=== PATIENT | female | born 1965 | race Two or more races ===

== ENCOUNTER 2016-12-08 06:21 | Emergency (ER) | payer MEDICAID ==
[~2016-12-08] VITALS: Ht 162.6 cm; Wt 61.2 kg
[~2016-12-08 06:21] MED LIST: ALBU2TAB4 PO; LOVA20TA4 PO; OMEP20CA5 OR
[2016-12-08 06:57] VITALS: BP 147/98
[2016-12-08] MEDS ORDERED: cefTRIAXone SOD 1,000 MG VL IM ONE (08:00)
== END 2016-12-08 08:21 | disposition home or self-care (01) ==
LOC: ER 06:22
CPT/HCPCS: 96372 ×2; 99283; J0696 ×2

== ENCOUNTER 2017-09-05 06:56 | Emergency (ER) | payer MEDICAID ==
[~2017-09-05] VITALS: Ht 162.6 cm; Wt 63.5 kg
[~2017-09-05 06:56] MED LIST changes: -OMEP20CA5 OR; +OMEP20CA74 OR
[2017-09-05 07:23] VITALS: BP 162/84
[2017-09-05] MEDS ORDERED: cefTRIAXone SOD 1,000 MG VL IM ONE (08:30)
== END 2017-09-05 09:40 | disposition home or self-care (01) ==
LOC: ER 06:56
DX: J02.9 Acute pharyngitis, unspecified (principal); J45.909 Unspecified asthma, uncomplicated; K21.9 Gastro-esophageal reflux disease without esophagitis; E78.00 Pure hypercholesterolemia, unspecified; I10 Essential (primary) hypertension
CPT/HCPCS: 96372; 99283; J0696; 93005

== ENCOUNTER → 2018-02-01 | Outpatient (CLI) | payer MEDICAID | END | disposition home or self-care (01) | LOC: Rad HDHVI 09:03 | PROVIDERS: ATTEND Internal Medicine | DX: I70.0 Atherosclerosis of aorta (principal); I10 Essential (primary) hypertension; E78.5 Hyperlipidemia, unspecified; K21.9 Gastro-esophageal reflux disease without esophagitis; J45.909 Unspecified asthma, uncomplicated | CPT/HCPCS: 93306 ==

== ENCOUNTER 2018-08-12 08:08 | Emergency (ER) | payer MEDICAID ==
[~2018-08-12] VITALS: Ht 160 cm; Wt 63.5 kg
[2018-08-12 08:15] VITALS: BP 120/73
== END 2018-08-12 08:53 | disposition home or self-care (01) ==
LOC: ER 08:08
DX: J02.9 Acute pharyngitis, unspecified (principal); J45.909 Unspecified asthma, uncomplicated; K21.9 Gastro-esophageal reflux disease without esophagitis; E78.5 Hyperlipidemia, unspecified; I10 Essential (primary) hypertension; Z90.710 Acquired absence of both cervix and uterus; Z88.8 Allergy status to other drugs, medicaments and biological substances

== ENCOUNTER → 2018-10-03 | Outpatient (CLI) | payer MEDICAID ==
[~2018-10-03] MED LIST changes: +IOHEXOL 350 MG/ML 100ML IJ ONE
[2018-10-03 08:15] VITALS: BP 168/99
--- NOTE | 2018-10-03 08:15 | NUR ---
[facility]F PT TO [facility] FOR IV INSERT FOR CTA ABD, RENALS. DX BACK PAIN AND CHRONIC HTN.
--- NOTE | 2018-10-03 08:20 | NUR ---
CHF IV insertion IV access obtained, via clean sterile technique by inserting 20 gauge catheter at after attempt(s). IV secured properly. No trauma to site. Patient tolerated procedure well.
[2018-10-03 09:15] VITALS: BP 169/98
--- NOTE | 2018-10-03 09:15 | NUR ---
CHF IV removal IV DC'd with sterile technique, catheter fully intact. Pressure dressing applied to site. INCREASE WATER INTAKE TODAY TO AID IN CONTRAST CLEARANCE. Patient tolerated procedure well. Discharged with aftercare instructions per MD. NOTE:
== END | disposition home or self-care (01) ==
LOC: Rad HDHVI 08:08
PROVIDERS: ATTEND Internal Medicine Cardiovascular Disease
DX: I70.1 Atherosclerosis of renal artery (principal); K57.30 Diverticulosis of large intestine without perforation or abscess without bleeding; R94.4 Abnormal results of kidney function studies; I10 Essential (primary) hypertension; M54.9 Dorsalgia, unspecified
CPT/HCPCS: 36415; 74175; 82565; G0463; Q9967

== ENCOUNTER → 2018-11-30 | Outpatient (CLI) | payer MEDICAID ==
[~2018-11-30] MED LIST changes: +ALBUAER3 IN; +ASPI81TA27 PO; +BENA40TA7 PO; +CHOL20007 PO; +CLON0.2D6 PO; +DONE10TA40 PO; +FLU220IH INH; +HYDR12.56 PO; +IBUP800T24 PO; -IOHEXOL 350 MG/ML 100ML IJ ONE; +LORA-622 PO; +NIFE60TA59 PO; +POTA1TAB61 PO; +SIMV-13 PO; +THYR30TA PO
[2018-11-30 12:25] VITALS: BP 154/81
[2018-11-30 12:50] VITALS: BP 139/79
--- NOTE | 2018-11-30 12:50 | NUR ---
Pre-Op Discharge Summary: See e-MAR for any medications given for this visit. Pre-op orders received and carried out per MD of EKG, LABS and chest xrays. Patient given a copy of EKG with instructions to go to [facility] out patient for further follow up care.
[2018-11-30 15:59] LABS: Basophils # (auto) 0 uL; Basophils % (auto) 0.5 % (0.0-2.0); Eosinophils # (auto) 0.3 uL; Eosinophils % (auto) 3.5 % (0.0-7.0); Hematocrit 40.3 % (36.0-46.0); Hemoglobin 13.4 g/dL (12.2-16.2); Lymphocytes # (auto) 1.8 uL; Lymphocytes % (auto) 24.6 % (10.0-50.0); Mean Corpuscular Hemoglobin 29.3 pg (28.0-32.0); Mean Corpuscular Hgb Conc. 33.2 g/dL (32.0-36.0); Mean Corpuscular Volume 88.2 fL (80.0-100.0); Monocytes # (auto) 0.6 uL; Monocytes % (auto) 8.1 % (0.0-12.0); Neutrophils # (auto) 4.6 uL; Neutrophils % (auto) 63.3 % (37.0-80.0); Nucleated Red Blood Cells % 0.2 %; Platelet Count (auto) 374 10^3/uL (140-450); Red Blood Cells 4.57 10^6/uL (4.0-5.20); Red Cell Distribution Width 13.3 % (11.8-14.3); White Blood Cell 7.3 10^3/uL (4.4-10.8)
[2018-11-30 16:03] LABS: BUN/Creatinine Ratio 18.6; Potassium 3.6 mmol/L (3.5-5.1)
[2018-11-30 16:28] LABS: INR 0.91 (0.9-1.15); Partial Thromboplastin Time 27.4 sec (23.78-33.04); Prothrombin Time 9.8 sec (9.27-12.13)
== END | disposition home or self-care (01) ==
LOC: Rad HDHVI 11:33
PROVIDERS: ATTEND Internal Medicine
DX: Z01.812 Encounter for preprocedural laboratory examination (principal); D64.9 Anemia, unspecified; R79.1 Abnormal coagulation profile; I10 Essential (primary) hypertension; R94.31 Abnormal electrocardiogram [ECG] [EKG]
CPT/HCPCS: 36415; 71046; 80048; 85025; 85610; 85730; 93005; G0463

== ENCOUNTER 2019-02-01 17:28 | Inpatient (IN) | payer MEDICAID ==
[~2019-02-01] VITALS: Ht 162.6 cm; Wt 63.2 kg
[~2019-02-01 17:28] MED LIST changes: -ALBU2TAB4 PO; -LOVA20TA4 PO
[2019-02-01] MEDS ORDERED: cloNIDine HCL 0.1 MG TAB PO ONE ×2 (17:45→21:30)
[2019-02-01 18:17] LABS: Basophils # (auto) 0.1 uL; Basophils % (auto) 1.3 % (0.0-2.0); Eosinophils # (auto) 0.2 uL; Eosinophils % (auto) 2.8 % (0.0-7.0); Hematocrit 42.7 % (36.0-46.0); Hemoglobin 14.3 g/dL (12.2-16.2); Lymphocytes # (auto) 2.3 uL; Mean Corpuscular Hemoglobin 29.8 pg (28.0-32.0); Mean Corpuscular Hgb Conc. 33.4 g/dL (32.0-36.0); Mean Corpuscular Volume 89.1 fL (80.0-100.0); Monocytes # (auto) 0.6 uL; Neutrophils # (auto) 4.8 uL; Neutrophils % (auto) 58.9 % (37.0-80.0); Nucleated Red Blood Cells % 0.1 %; Platelet Count (auto) 318 10^3/uL (140-450); Red Cell Distribution Width 13.5 % (11.8-14.3); White Blood Cell 8.1 10^3/uL (4.4-10.8)
[2019-02-01 18:34] LABS: Albumin 4.2 g/dL (3.4-5.0); BUN/Creatinine Ratio 12.9; Potassium 3.2 mmol/L (3.5-5.1)
[2019-02-01 18:36] LABS: Bilirubin, Total 0.5 mg/dL (0.2-1.0); Total Protein 8.3 g/dL (6.4-8.2)
[2019-02-01 18:58] LABS: Urine Bacteria NONE SEEN /hpf (None Seen); Urine Blood Negative /uL (Negative); Urine Specific Gravity 1.003 (1.001-1.035); Urine WBC 3 /hpf (0 - 5)
[2019-02-01 20:10] LABS: INR < 0.93 (0.9-1.15); Partial Thromboplastin Time 27.9 sec (23.64-32.05)
[2019-02-01] MEDS ORDERED: TEMAZEPAM 15 MG CAP PO PRN (23:45)
[2019-02-01] MEDS ORDERED: HYDROcodone-ACET 5/325MG TAB PO PRN (23:45)
[2019-02-01] MEDS ORDERED: ONDANSETRON HCL 4 MG/2 ML VIAL IV PRN (23:45)
[2019-02-01] MEDS ORDERED: hydrALAZINE HCL 10 MG TAB PO PRN (23:45)
[2019-02-01] MEDS ORDERED: ALBUTEROL SULF 2.5 MG/0.5ML(0.5%) NEB SOLN NEB PRN (23:45)
[2019-02-02] VITALS (7 sets, daily range): BP systolic 118–156; BP diastolic 63–89
[2019-02-02] MEDS ORDERED: POTASSIUM CHL 20 Meq TABLET PO ONE
[2019-02-02] MEDS: ACETAMINOPHEN 500 MG TAB PO PRN ×3 (01:02→16:53)
[2019-02-02] MEDS ORDERED: FURO20TA3 PO (01:40)
[2019-02-02 05:47] LABS: Basophils # (auto) 0.1 uL; Basophils % (auto) 0.8 % (0.0-2.0); Eosinophils # (auto) 0.2 uL; Eosinophils % (auto) 3.5 % (0.0-7.0); Hematocrit 43.2 % (36.0-46.0); Hemoglobin 14.5 g/dL (12.2-16.2); Lymphocytes # (auto) 2.1 uL; Lymphocytes % (auto) 29.7 % (10.0-50.0); Mean Corpuscular Hemoglobin 29.9 pg (28.0-32.0); Mean Corpuscular Hgb Conc. 33.7 g/dL (32.0-36.0); Mean Corpuscular Volume 88.7 fL (80.0-100.0); Monocytes # (auto) 0.7 uL; Monocytes % (auto) 9.5 % (0.0-12.0); Neutrophils % (auto) 56.5 % (37.0-80.0); Platelet Count (auto) 301 10^3/uL (140-450); Red Blood Cells 4.87 10^6/uL (4.0-5.20); Red Cell Distribution Width 13.5 % (11.8-14.3); White Blood Cell 7.1 10^3/uL (4.4-10.8)
[2019-02-02] MEDS: THYROID 60 MG TAB PO SCH (06:07)
[2019-02-02] MEDS: PANTOPRAZOLE 40 MG TAB PO SCH (06:08)
[2019-02-02 06:09] LABS: Calcium 9.2 mg/dL (8.5-10.1)
[2019-02-02 06:11] LABS: BUN/Creatinine Ratio 12.8
--- NOTE | 2019-02-02 07:35 | NUR ---
Respiratory note: HR 58, RR 14, SPO2 97%, BS CLEAR. PRN [place] TX NOT INDICATED. NO SIGNS OR SYMPTOMS OF RESPIRATORY DISTRESS NOTED AT THIS TIME. PT INFORMED TO HIT CALL BUTTON IF FEELING SOB OR WHEEZING.
[2019-02-02] MEDS: HCTZ 25 MG TAB PO SCH (09:15)
[2019-02-02] MEDS: ASPirin-EC 81 mg tab PO SCH (09:15)
[2019-02-02] MEDS: POTASSIUM CHL 10 Meq TABLET PO SCH (09:16)
[2019-02-02] MEDS: cloNIDine HCL 0.1 MG TAB PO SCH ×2 (09:16→22:38)
[2019-02-02] MEDS: BENAZEPRIL HCL 10 MG TAB PO SCH ×2 (10:00→22:00)
--- NOTE | 2019-02-02 10:36 | NUR ---
Dr. Mccrary in to see patient for cardiology. Dr. Deras in to see patient as primary physician. Dr. Deras informed that patient is complaining of dizziness, headache, and right neck pain. Dr. Deras states he will order neurology consult.
[2019-02-02] MEDS: amLODIPine BESYLATE 5 MG TAB PO SCH (12:54)
[2019-02-02] MEDS ORDERED: LORazepam 2MG/ML-1ML VIAL IV PRN (17:00)
--- NOTE | 2019-02-02 17:00 | NUR ---
Dr. Garcia in to see patient for neurology consult. He states the patient needs an MRI on her neck. Dr. Garcia states he spoke with Dr. Deras.
[2019-02-02] MEDS: hydrALAZINE HCL 25 MG TAB PO SCH ×2 (17:03→22:39)
--- NOTE | 2019-02-02 19:35 | NUR ---
Opening Shift Note Assumed care of patient, awake and alert. No S/S of distress/SOB. The patient c/o right neck and shoulder pain but does not request pain medication. Instructed on POC and to call for assist PRN, will continue to monitor for changes Q1hr and PRN.
--- NOTE | 2019-02-03 00:10 | NUR ---
PT SEEN SLEEPING IN BED ON RA WITH SPO2 97%. BS CLEAR AND DIMINISHED. PRN NEB TX NOT INDICATED AT THIS TIME.
[2019-02-03 04:49] VITALS: BP 106/65
[2019-02-03] MEDS: THYROID 60 MG TAB PO SCH (06:17)
[2019-02-03] MEDS: hydrALAZINE HCL 25 MG TAB PO SCH ×3 (06:18→21:52)
[2019-02-03] MEDS: PANTOPRAZOLE 40 MG TAB PO SCH (06:18)
[2019-02-03] MEDS: ACETAMINOPHEN 500 MG TAB PO PRN ×3 (06:18→21:53)
--- NOTE | 2019-02-03 06:20 | NUR ---
Patient complains of right sided neck and shoulder pain. Request PRN pain medication. The patient was also given an ice pack for the pain.
--- NOTE | 2019-02-03 07:30 | NUR ---
Report received. Patient is alert and oriented. Patient has no complaints at this time. No S/S distress. Call light in reach. Will continue to monitor.
[2019-02-03 09:24] VITALS: BP 116/53
[2019-02-03] MEDS: HCTZ 25 MG TAB PO SCH (09:57)
[2019-02-03] MEDS: cloNIDine HCL 0.1 MG TAB PO SCH ×2 (09:58→21:53)
[2019-02-03] MEDS: ASPirin-EC 81 mg tab PO SCH (09:58)
[2019-02-03] MEDS: BENAZEPRIL HCL 10 MG TAB PO SCH ×2 (09:59→21:52)
[2019-02-03] MEDS: amLODIPine BESYLATE 5 MG TAB PO SCH (09:59)
[2019-02-03] MEDS: POTASSIUM CHL 10 Meq TABLET PO SCH (10:00)
[2019-02-03 12:33] VITALS: BP 125/68
--- NOTE | 2019-02-03 14:29 | NUR ---
ASSESSED PT FOR MED NEB PRN BREATHING TX, PT IS AWAKE AND ALERT WITH NO DISTRESS NOTED WITH A SPO2 100%, HR 78, RR 16 WITH CLEAR BS. PT MADE AWARE OF PRN MED NEB BREATHING TX. WILL CONTINUE TO MONITIOR PT.
[2019-02-03 17:15] VITALS: BP 124/65
--- NOTE | 2019-02-03 18:38 | NUR ---
Patient medicated PRN right shoulder pain. Patient states good relief from ice pack.
--- NOTE | 2019-02-03 19:25 | NUR ---
Opening Shift Note Assumed care of patient, awake and alert. No S/S of distress/SOB. The patient c/o right sided neck and shoulder pain which is relieved with an ice pack. Instructed on POC and to call for assist PRN, will continue to monitor for changes Q1hr and PRN.
[2019-02-03 22:00] VITALS: BP 108/56
--- NOTE | 2019-02-04 04:25 | NUR ---
PT SEEN SLEEPING ON RA WITH SPO2 98%, BS CLEAR AND DIMINISHED, PRN NEB TX NOT INDICATED AT THIS TIME.
[2019-02-04 05:18] VITALS: BP 111/65
[2019-02-04] MEDS: hydrALAZINE HCL 25 MG TAB PO SCH ×2 (06:33→16:16)
[2019-02-04] MEDS: THYROID 60 MG TAB PO SCH (06:33)
[2019-02-04] MEDS: PANTOPRAZOLE 40 MG TAB PO SCH (06:33)
[2019-02-04 07:08] LABS: Magnesium 2.4 mg/dL (1.6-2.6); Potassium 3.7 mmol/L (3.5-5.1)
[2019-02-04 09:00] VITALS: BP 120/72
[2019-02-04] MEDS: HCTZ 25 MG TAB PO SCH (09:07)
[2019-02-04] MEDS: ASPirin-EC 81 mg tab PO SCH (09:08)
[2019-02-04] MEDS: POTASSIUM CHL 10 Meq TABLET PO SCH (09:08)
[2019-02-04] MEDS: amLODIPine BESYLATE 5 MG TAB PO SCH (09:09)
[2019-02-04] MEDS: cloNIDine HCL 0.1 MG TAB PO SCH (09:10)
[2019-02-04] MEDS: BENAZEPRIL HCL 10 MG TAB PO SCH (09:11)
[2019-02-04 09:54] LABS: Folate (Folic Acid) 16.2 ng/mL (5.38-24)
--- NOTE | 2019-02-04 10:20 | NUR ---
Respiratory note: PT ASSESSED FOR PRN MEDNEB TX. NO RESPIRATORY DISTRESS NOTED. TX NOT INDICATED AT THIS TIME. SPO2 98% ON RA HR 78 RR 16 B/S CLEAR. PT AWARE TO HAVE RT PAGED IF THEY BECOME SOB.
[2019-02-04 13:00] VITALS: BP 106/65
[2019-02-04 16:51] VITALS: BP 102/67
--- NOTE | 2019-02-04 17:30 | NUR ---
PAGED DR. BLISS IN REGARDS TO MRI TO GET DISCHARGE CLEARANCE
--- NOTE | 2019-02-04 17:55 | NUR ---
Dr. Garcia called and stated he would read report and then call back for notification if patient is cleared for discharge.
--- NOTE | 2019-02-04 18:12 | NUR ---
Respiratory note: PT IN NO NEED FOR SVN AT THIS TIME. NO RESP DISTRESS AT THIS TIME. CLEAR BREATH SOUNDS BILATERALLY. PT KNOWS TO NOTIFY NURSE IF SOB.
--- NOTE | 2019-02-04 18:55 | NUR ---
cleared by doctor hogan
--- NOTE | 2019-02-04 20:00 | NUR ---
Discharge instructions given as ordered. Encourage to follow up with PMD as instructed. All questions and concerns addressed. Patient verbalized understanding. Medication reconciliation form completed and copy given to patient. IV removed with catheter intact, pressure dressing applied. Telemetry unit returned to [facility]. Patient taken to vehicle via wheelchair with all personal belongings, accompanied by staff and family member. No distress noted at time of departure.
== END 2019-02-04 20:00 | disposition home or self-care (01) | DRG 347 ==
LOC: ER 17:28 → TELE 23:46 → TELE-WESTW 02-02 00:30
PROVIDERS: ADMIT Nurse Practitioner Family; ATTEND Internal Medicine
DX: M48.02 Spinal stenosis, cervical region (principal); E03.9 Hypothyroidism, unspecified; I10 Essential (primary) hypertension; G89.29 Other chronic pain; E78.5 Hyperlipidemia, unspecified; E87.6 Hypokalemia; R00.1 Bradycardia, unspecified; J45.909 Unspecified asthma, uncomplicated; I70.0 Atherosclerosis of aorta; K21.9 Gastro-esophageal reflux disease without esophagitis; Z79.899 Other long term (current) drug therapy; Z80.3 Family history of malignant neoplasm of breast; Z82.49 Family history of ischemic heart disease and other diseases of the circulatory system; Z83.3 Family history of diabetes mellitus; Z90.710 Acquired absence of both cervix and uterus; Z98.51 Tubal ligation status
CPT/HCPCS: 36415; 70450; 71046; 72125; 72141; 80048; 80053; 81001; 82607; 82746; 83735; 83880; 84443; 85025; 85379; 85610; 85730; 93005; G0378

== ENCOUNTER 2021-04-11 07:19 | Emergency (ER) | payer MEDICAID ==
[~2021-04-11] VITALS: Ht 162.6 cm; Wt 54.4 kg
[~2021-04-11 07:19] MED LIST changes: +ASPI-543 PO; -ASPI81TA27 PO; -BENA40TA7 PO; +BENA40TA8 PO; -DONE10TA40 PO; +DONE1TAB88 PO; +FURO20TA3 PO; -HYDR12.56 PO; -IBUP800T24 PO; -NIFE60TA59 PO; -OMEP20CA74 OR
[2021-04-11] MEDS ORDERED: cefTRIAXone SOD 1,000 MG VL IM ONE (09:45)
[2021-04-11] MEDS ORDERED: methylPREDNISolone SOD SUCC 125 MG/2 ML VL IM ONE (09:45)
[2021-04-11 09:46] VITALS: BP 138/81
== END 2021-04-11 10:44 | disposition home or self-care (01) ==
LOC: ER 07:21
DX: J06.9 Acute upper respiratory infection, unspecified (principal); J45.909 Unspecified asthma, uncomplicated; K21.9 Gastro-esophageal reflux disease without esophagitis; E78.5 Hyperlipidemia, unspecified; I10 Essential (primary) hypertension; Z20.822 Contact with and (suspected) exposure to COVID-19; Z79.82 Long term (current) use of aspirin; Z79.899 Other long term (current) drug therapy; Z90.710 Acquired absence of both cervix and uterus; Z98.890 Other specified postprocedural states
CPT/HCPCS: 36415; 87426; 96372; 99284; J0696; J2930

== ENCOUNTER 2023-04-21 05:43 | Emergency (ER) | payer MEDICAID ==
[~2023-04-21] VITALS: Ht 162.6 cm; Wt 60.6 kg
[~2023-04-21 05:43] MED LIST changes: +BENA40TA70 PO; -BENA40TA8 PO; -SIMV-13 PO; +SIMV40TA18 PO
[2023-04-21 06:12] VITALS: BP 144/99; PULSE 65; RESP 18; TEMP 98.3; O2SAT 99
[2023-04-21] MEDS ORDERED: LIDO2SOL26 MT ×2 (06:47)
[2023-04-21] MEDS ORDERED: AZIT-81 PO (06:47)
[2023-04-21] MEDS ORDERED: METH4PAK PO (06:57)
== END 2023-04-21 07:02 | disposition home or self-care (01) ==
LOC: ER 05:43
DX: J02.9 Acute pharyngitis, unspecified (principal); J04.0 Acute laryngitis; J45.909 Unspecified asthma, uncomplicated; K21.9 Gastro-esophageal reflux disease without esophagitis; E78.5 Hyperlipidemia, unspecified; I10 Essential (primary) hypertension; Z90.710 Acquired absence of both cervix and uterus

== ENCOUNTER 2023-11-14 06:09 | Emergency (ER) | payer MEDICAID ==
[~2023-11-14] VITALS: Ht 162.6 cm; Wt 65.4 kg
[~2023-11-14 06:09] MED LIST changes: +AZIT-185 PO; -BENA40TA70 PO; +BENA40TA71 PO; +METH4PAK PO; +POTA-215 PO; -POTA1TAB61 PO
[2023-11-14] MEDS ORDERED: AZIT1POW PO (08:11)
[2023-11-14 08:29] VITALS: BP 168/99; PULSE 68; RESP 18; TEMP 98.3; O2SAT 98
== END 2023-11-14 08:31 | disposition home or self-care (01) ==
LOC: ER 06:09
DX: J20.9 Acute bronchitis, unspecified (principal); J45.909 Unspecified asthma, uncomplicated; K21.9 Gastro-esophageal reflux disease without esophagitis; E78.5 Hyperlipidemia, unspecified; I10 Essential (primary) hypertension; Z90.710 Acquired absence of both cervix and uterus; Z98.51 Tubal ligation status
CPT/HCPCS: 71046

== ENCOUNTER → 2024-01-22 | Outpatient (CLI) | payer MEDICAID ==
[~2024-01-22] MED LIST changes: +AZIT1POW PO
== END | disposition home or self-care (01) ==
LOC: Rad HDHVI 10:05
PROVIDERS: ATTEND Internal Medicine Cardiovascular Disease
DX: I10 Essential (primary) hypertension (principal); R07.89 Other chest pain
CPT/HCPCS: 93306

== ENCOUNTER → 2024-08-28 | Outpatient (CLI) | payer MEDICAID ==
[~2024-08-28] VITALS: Ht 162.6 cm; Wt 61.2 kg
[~2024-08-28] MED LIST changes: +ADENOSINE 51 MG in GIVE UN-DILUTED 0 ML IV ONE; +ADENOSINE 90 MG/30 ML INJ IV ONE
== END | disposition home or self-care (01) ==
LOC: Rad HDHVI 08:19
PROVIDERS: ATTEND Internal Medicine Cardiovascular Disease
DX: I10 Essential (primary) hypertension (principal); E78.5 Hyperlipidemia, unspecified; Z82.49 Family history of ischemic heart disease and other diseases of the circulatory system
CPT/HCPCS: 78452; 93005; 96374; 96375; A9500; J0153